=== PATIENT | male | born 1970 | race Caucasian/White ===

== ENCOUNTER → 2018-09-26 | Outpatient (CLI) | payer BC ==
[~2018-09-26] MED LIST: ALAVERT10 M1 PO; ASPIRIN E.C. 8181 MG PO; CHANTIX 1MG1 MG PO; CINNAMON BARK; D3-55000 IU PO; DESYREL 50MG50 MG PO; DHEA50 MG PO; FLONASE NASAL S16 GM NS; GLUCOPHAGE500 MG/TAB PO; LEVOTHYROXINE PO; M2 CHROMIUM500 MCG PO; METFORMIN500 MG PO; MULTIVITAMIN1 CTB PO; NORCO 325 MG-51 TAB PO; PRINZIDE 12.5 M1 TAB PO; VENTOLIN0.09 MG IH; ZOFRAN ODT4 MG PO; [UNRECOGNIZED DRUG - OTHER]
[2018-09-26 11:57] LABS: BASO % 0.4 % (0.0-2.0); EOS # 0.4 (0.0-0.7); EOS % 4.1 % (0-4.0); GRAN # 5.8 (1.4-6.5); GRAN % 55.4 % (42.2-75.2); HEMATOCRIT 43.1 % (42.0-52.0); LYMPH # 3.5 (1.2-3.4); LYMPH % 33.8 % (20.0-51.0); MEAN CELL VOLUME 88 fl (80.0-100.0); MEAN CORPUSCULAR HEMOGLOBIN 33 pg (27.0-31.0); MEAN CORPUSCULAR HGB CONC 37 g/dl (33.0-37.0); MEAN PLATELET VOLUME 12.5 fl (7.4-10.4); MONO # 0.6 (0.1-0.6); MONO % 5.6 % (1.7-9.3); PLATELET COUNT 217 K/mm3 (130-400); RED BLOOD COUNT 4.91 M/mm3 (4.20-5.60); REDCELL DISTRIBUTION WIDTH-CV 12.2 % (11.5-14.5)
[2018-09-26 12:07] LABS: ALANINE AMINOTRANSFERASE 25 U/L (21-72); ALBUMIN 4.1 gm/dL (3.5-5.0); ALKALINE PHOSPHATASE 112 U/L (50-136); ANION GAP 10 mmol/L (7-16); AST,SGOT 21 U/L (15-37); BILIRUBIN,TOTAL 0.6 mg/dL (0.0-1.0); BLOOD UREA NITROGEN 19 mg/dL (9-20); CALCIUM 9.4 mg/dL (8.4-10.2); CARBON DIOXIDE 23 mmol/L (22-30); CHLORIDE 104 mmol/L (98-107); CREATININE, serum 0.76 mg/dL (0.66-1.25); GLUCOSE 180 mg/dL (74-106); POTASSIUM 3.7 mmol/L (3.4-5.0); SODIUM 136 mmol/L (137-145); TOTAL PROTEIN 6.5 gm/dL (6.4-8.2)
[2018-09-26 12:20] LABS: TROPONIN-I < 0.012 ng/mL (0.000-0.035)
== END ==
LOC: ZCOL.LAB 11:36
PROVIDERS: Nurse Practitioner Family
DX: I47.1 Supraventricular tachycardia (principal)

== ENCOUNTER 2020-09-23 07:37 | Day surgery (SDC) | payer BC ==
[~2020-09-23] VITALS: Ht 175.3 cm; Wt 114.4 kg
[2020-09-23] MEDS ORDERED: GLUCOPHAGE1000 MG PO (08:27)
[2020-09-23 09:09] VITALS: BP 121/87; PULSE 80; TEMP 98.5
[2020-09-23] MEDS ORDERED: PRINIVIL20 MG PO (09:17)
[2020-09-23] MEDS ORDERED: PROTONIX 40MG T40 MG PO (09:21)
[2020-09-23 09:25] VITALS: BP 106/72; PULSE 88; TEMP 98
--- NOTE | 2020-09-23 09:25 | NUR ---
Pt to [facility] via cart from [facility]. Pt awake and alert. Pt ambulates to recliner with stand by assist. Warm blanket provided. Ice chips and crackers given per pt request. Will continue to monitor. Call light within reach.
[2020-09-23 09:45] VITALS: BP 103/79; PULSE 82
--- NOTE | 2020-09-23 09:45 | NUR ---
Pt continues to rest. Denies needs. Call light within reach.
[2020-09-23 10:00] VITALS: BP 109/83; PULSE 85
--- NOTE | 2020-09-23 10:00 | NUR ---
Pt tolerating po food and fluids without difficulties. Denies needs. Call light within reach.
--- NOTE | 2020-09-23 10:10 | NUR ---
Discharge instructions reviewed. Pt voices understanding. IV discontinued with all parts intact by RONNIE RN. Pt up to dress. Call light within reach.
--- NOTE | 2020-09-23 10:17 | NUR ---
Pt escorted to private car via wheel chair. Pt accompanied home by his .
== END 2020-09-23 10:20 | disposition home or self-care (01) ==
LOC: SDCO 07:37
DX: K29.70 Gastritis, unspecified, without bleeding (principal); K44.9 Diaphragmatic hernia without obstruction or gangrene; I10 Essential (primary) hypertension; E11.9 Type 2 diabetes mellitus without complications; J44.9 Chronic obstructive pulmonary disease, unspecified; E78.5 Hyperlipidemia, unspecified; E03.9 Hypothyroidism, unspecified; G47.33 Obstructive sleep apnea (adult) (pediatric); Z20.822 Contact with and (suspected) exposure to COVID-19; F32.9 Major depressive disorder, single episode, unspecified; J30.2 Other seasonal allergic rhinitis; Z79.890 Hormone replacement therapy; Z79.899 Other long term (current) drug therapy; Z79.84 Long term (current) use of oral hypoglycemic drugs
CPT/HCPCS: J2704; J7030

== ENCOUNTER → 2024-06-05 | Outpatient (CLI) | payer BC ==
[~2024-06-05] MED LIST changes: +DOXYCYCLINE 10100 MG PO; +GLUCOPHAGE1000 MG PO; +PRINIVIL20 MG PO; +PROTONIX 40MG T40 MG PO; +Sincalide 2 MCG in NS 13 ML IV SCH
== END ==
LOC: COL.RAD 06:12
DX: R10.9 Unspecified abdominal pain (principal)
CPT/HCPCS: A9537-JZ; J2805